=== PATIENT | female | born 1945 | race Caucasian/White ===

== ENCOUNTER 2023-03-08 13:06 | Outpatient (CLI) | payer MEDICARE, OTHER | END 2023-03-08 13:07 | disposition home or self-care (01) | LOC: CSHMAMMO 13:06 | PROVIDERS: ATTEND Obstetrics & Gynecology | DX: Z12.31 Encounter for screening mammogram for malignant neoplasm of breast (principal); Z80.3 Family history of malignant neoplasm of breast; Z91.89 Other specified personal risk factors, not elsewhere classified; Z98.82 Breast implant status | CPT/HCPCS: 77063; 77067 ==

== ENCOUNTER 2023-04-27 09:23 | Day surgery (SDC) | payer MEDICARE, OTHER ==
[2023-04-26 12:35] VITALS: BMI 27.4
[2023-04-27 10:12] LABS: Hematocrit 36.2 % (34.9-44.5); Hemoglobin 11.4 g/dL (12.0-15.5); Mean Corpuscular HGB CONC 31.5 g/dL (32.0-36.0); Mean Corpuscular Hemoglobin 28.1 pg (27.0-33.0); Mean Corpuscular Volume 89.2 fl (81.6-98.3); Mean Platelet Volume 9.2 fl (7.4-10.4); Platelet Count 272 10x3/uL (150-450); Red Blood Cell (RBC) Count 4.06 10x6/uL (3.90-5.03); White Blood Cell (WBC) Count 10.7 10x3/uL (3.5-10.5)
[2023-04-27 10:18] LABS: Anion Gap 15 mmol/L (10-20); BUN (Urea Nitrogen) 19 mg/dL (9.8-20.1); Calc. Creatinine Clearance 49 mL/min (70-130); Calcium 9.4 mg/dL (7.8-10.44); Carbon Dioxide 23 mmol/L (23-31); Chloride 106 mmol/L (98-107); Estimated GFR 53; Glucose 99 mg/dL (83-110); Potassium 4.4 mmol/L (3.5-5.1); Sodium 140 mmol/L (136-145)
[2023-04-27] MEDS ORDERED: Bupivacaine PF 0.5% 30 ML VIAL ONE (12:19)
[2023-04-27] MEDS ORDERED: CEFAZOLIN 2 GM VIAL ONE (12:19)
[2023-04-27] MEDS ORDERED: fentaNYL 50 mcg/mL 1 mL Vial ONE (12:20)
[2023-04-27] MEDS ORDERED: PROPOFOL 20 ML ONE (12:20)
[2023-04-27] MEDS ORDERED: Dexamethasone 20 MG/5 ML VIAL ONE (12:20)
[2023-04-27] MEDS ORDERED: Ketorolac Tromethamine 30 MG/ML VIAL ONE (12:20)
[2023-04-27] MEDS ORDERED: Lidocaine 1% PF 5 ML VIAL ONE (12:20)
[2023-04-27] MEDS ORDERED: Midazolam HCl 2 mg/2 ml Vial ONE (12:20)
[2023-04-27] MEDS ORDERED: Ondansetron PF 4 MG/2 ML Vial ONE (12:20)
== END 2023-04-27 14:55 | disposition home or self-care (01) ==
LOC: CSHSDC 09:23
PROVIDERS: ATTEND Podiatrist Foot & Ankle Surgery
PROC: 0SG Lower Joints, Fusion (ICD-10-PCS; principal; 2023-04-27)
DX: M20.41 Other hammer toe(s) (acquired), right foot (principal); I13.10 Hypertensive heart and chronic kidney disease without heart failure, with stage 1 through stage 4 chronic kidney disease, or unspecified chronic kidney disease; N18.30 Chronic kidney disease, stage 3 unspecified; I35.1 Nonrheumatic aortic (valve) insufficiency; I87.2 Venous insufficiency (chronic) (peripheral); E78.00 Pure hypercholesterolemia, unspecified; E03.9 Hypothyroidism, unspecified; F10.90 Alcohol use, unspecified, uncomplicated; F15.90 Other stimulant use, unspecified, uncomplicated; Z96.653 Presence of artificial knee joint, bilateral; Z90.89 Acquired absence of other organs; Z96.82 Presence of neurostimulator; Z88.8 Allergy status to other drugs, medicaments and biological substances; Z90.710 Acquired absence of both cervix and uterus; Z90.49 Acquired absence of other specified parts of digestive tract; Z79.890 Hormone replacement therapy; Z79.899 Other long term (current) drug therapy
CPT/HCPCS: 28755; 73620; 80048; 85027; J3010; 36415; J1100; J1885; J2250; J2405; J2704; S0020